=== PATIENT | female | born 1955 | race Caucasian/White ===

== ENCOUNTER 2022-05-23 10:32 | Outpatient (REF) | payer OTHER, SELFPAY ==
--- NOTE | ~2022-05-23 | US_ITS ---
EXAMINATION: US EXTRACRANIAL CAROTID DUPLEX, BILATERAL CLINICAL INFORMATION: Carotid atherosclerosis. COMPARISON: None TECHNIQUE: Real-time ultrasound and Doppler techniques (integrating B-mode 2-D vascular images, Doppler spectral analysis and color-flow Doppler imaging) were utilized to interrogate the extracranial carotid arteries, the vertebral arteries and proximal subclavian arteries bilaterally. The degree of stenosis is determined by criteria similar to NASCET. FINDINGS: Right Side: 1. There is minimal atherosclerotic plaque seen in the bifurcation/proximal ICA region. 2. The common carotid artery PSV proximally is 98.5 cm/s and distally 87.9 cm/s. 3. The proximal internal carotid artery velocities are 96.2 cm/s systolic and 27.6 cm/s diastolic. 4. The proximal external carotid artery PSV is 82.6 cm/s. 5. The vertebral artery shows antegrade flow. 6. The subclavian artery waveforms are normal. Left Side: 1. There is minimal atherosclerotic plaque seen in the bifurcation/proximal ICA region. 2. The common carotid artery PSV proximally is 114 cm/s and distally 92.6 cm/s. 3. The proximal internal carotid artery velocities are 148 cm/s systolic and 55 cm/s diastolic. 4. The proximal external carotid artery PSV is 138 cm/s. 5. The vertebral artery shows antegrade flow. 6. The subclavian artery waveforms are normal. US/US carotid duplex BI IMPRESSION: 1. RIGHT: Minimal, non-hemodynamically significant stenosis of the proximal right internal carotid artery corresponding to a 0-49% stenosis by velocity criteria. 2. LEFT: Moderate, hemodynamically significant stenosis of the proximal left internal carotid artery corresponding to a 50-79% stenosis by velocity criteria.
== END 2022-05-23 10:33 | disposition home or self-care (01) ==
LOC: HO.US 10:32
PROVIDERS: PCP Internal Medicine; Visit Provider Internal Medicine
DX: I65.29 Occlusion and stenosis of unspecified carotid artery (principal)
CPT/HCPCS: 93880

== ENCOUNTER 2024-02-26 11:56 | Outpatient (AMB) | payer OTHER, SELFPAY ==
--- NOTE | 2024-02-26 12:09 | A.OFFPC_ITS ---
Vital Signs 3 02/26/24 12:14 Height 5 ft 4 in Weight 111 lb BMI 19.1 BP 108/58 L Blood Pressure Location Lt brachial Position Sitting Respiration 16 Pulse 71 Pulse Source Pulse Oximeter Temp 98.9 F Temp Source Oral Pulse Oximetry (%) 96 Oxygen Delivery Method Room Air Intake Visit Reasons: tongue pain Intake Note: Tongue pain Post Graduate Intern Required: No Accompanied by: Spouse Allergies No Known Allergies Allergy (Verified 02/26/24 12:55) Medication List - Last Reconciled 02/26/24 by Latesha Park, [employer] MANAGER- doxycycline hyclate 100 mg PO BID ibuprofen 200 mg PO Q6H PRN metoprolol succinate ER 25 mg PO DAILY valacyclovir 500 mg PO BID HPI HPI Comments 2 History of Present Illness0 Details Here today w/ a sores on tongue reports prone to canker sores sx started Friday, worse on Friday Did call her PCP and was given Doxy and Valacylovir w/o relief Reports this happened about 10 years ago and this resolved w/ use of Steroid dose pack Difficult to eat d/t pain. Headache. Denies trauma to the tongue. Former smoker. Using NSAID w/o relief. Denies fever, chills. PFSH Social History Patient Tobacco Use Status: Former Tobacco user Tobacco use type: Cigarette Cigarette Packs Per Day: 1 Years Smoked: 25 e-Cigarette/Vaping Use: Never Used Review of Systems Const All systems reviewed & are unremarkable except as noted in HPI and below Physical exam (Primary Care) Vital Signs: Last Vital Signs Temp 98.9 F 02/26/24 12:14 Pulse 71 02/26/24 12:14 Resp 16 02/26/24 12:14 BP 108/58 L 02/26/24 12:14 Pulse Ox 96 02/26/24 12:14 Oxygen Delivery Method Room Air 02/26/24 12:14 BMI result Body Mass Index 19.1 Tobacco/Smoking Status: Tobacco use Status Patient Tobacco Use Status Former Tobacco user 02/26/24 12:21 Tobacco use type Cigarette 02/26/24 12:21 e-Cigarette/Vaping Use Never Used 02/26/24 12:21 Const Other: awake alert speaking in full sentences managing secretions pharynx clear uvula midline HENMT Mouth/tongue images: 2 1. large ulceration irregular border noted to left side of tongue 2. apthous ulcer 3. apthous ulcer Assessment and Plan Assessment & Plan (1) Recurrent aphthous stomatitis: Comment: advised to complete doxy and valacyclovir as RXd by PCP Start Medrol dose pack, as she responded well to this previously no OTC nsaids while taking the medrol Tramadol for pain along w/ lidocaine viscous, edu on use if lidocaine viscous fu with PCP Friday if no improvement consider referral for bx. Code(s): K12.0 - Recurrent oral aphthae Plan This note is constructed using voice recognition software. While every effort has been made to ensure accuracy in school director, still errors may have been included Sometimes, these errors may affect the content or meaning of the given sentence . Total time spent caring for the patient today was 30 minutes. This includes time spent before the visit reviewing the chart, time spent during the visit, and time spent after the visit on documentation Medications: New 2 methylprednisolone (Medrol ([place])) PO PER PKG DIR 21 ea 0RF lidocaine HCl 2% (Lidocaine Viscous) 15 mL mucous membrane QID PRN 300 mL 0RF pain tramadol 25 mg PO Q6H PRN 12 tabs 0RF pain Coding Level of Care Code Est Pt Level 4 (15105) Diagnoses Recurrent aphthous stomatitis K12.0
[2024-02-26 12:14] VITALS: BP 108/58; PULSE 71; RESP 16; TEMP 37.2; O2SAT 96; BMI 19.1
== END 2024-02-26 13:14 | disposition home or self-care (01) ==
PROVIDERS: PCP Internal Medicine; Visit Provider Nurse Practitioner Family
DX: K12.0 Recurrent oral aphthae (principal)
CPT/HCPCS: 99214

== ENCOUNTER 2024-05-21 14:16 | Outpatient (REF) | payer OTHER, SELFPAY ==
[2024-05-21 16:45] LABS: MANUAL DIFF FLAG NO
[2024-05-21 16:49] LABS: Basophils Absolute Auto 0.1 X10*3/uL (0.0-0.2); Basophils Percent Auto 0.5 % (0-2); Eosinophils Absolute Auto 0.1 X10*3/uL (0.0-0.4); Eosinophils Percent Auto 0.7 % (0-4); Hematocrit 36.6 % (37.0-47.0); Hemoglobin 12.1 g/dl (12.0-16.0); Imm Gran Abs Auto 0.03 X10*3/uL (0.00-0.03); Imm Gran Pct Auto 0.3 % (0.0-0.4); Lymphocytes Absolute Auto 1.7 X10*3/uL (1.2-4.9); Lymphocytes Percent Auto 17.1 % (20-40); Mean Corpuscular HGB Conc 33.1 g/dl (31.0-35.0); Mean Corpuscular Hemoglobin 30.1 pg (27.0-33.0); Mean Platelet Volume 10.3 fL (9.4-12.3); Monocytes Absolute Auto 0.9 X10*3/uL (0.1-1.2); Monocytes Percent Auto 9.1 % (2-11); Neutrophils Absolute Auto 7.1 x10*3/uL (2.0-8.3); Neutrophils Percent Auto 72.3 % (45-73); Platelet Count 486 X10*3/uL (160-400); Red Blood Count 4.02 X10*6/uL (4.20-5.50); Red Cell Distribution Width 14.3 % (11.0-16.0); White Blood Count 9.8 X10*3/uL (4.8-10.8)
[2024-05-21 17:36] LABS: Alanine Aminotransferase 33 U/L (0-31); Albumin Level 3.9 g/dL (3.5-5.0); Alkaline Phosphatase 110 U/L (39-117); Anion Gap 12 (12-20); Aspartate Amino Transferase 30 U/L (5-31); Bilirubin Total 0.2 mg/dL (0.0-1.0); Blood Urea Nitrogen 12 mg/dL (9-16); Calcium 9.1 mg/dL (8.4-10.2); Carbon Dioxide 27 mmol/L (22-29); Chloride 104 mmol/L (96-108); Estimated Glomerular Filt Rate > 60; Glucose Random 81 mg/dL (60-115); Potassium 4.3 mmol/L (3.3-5.1); Sodium 139 mmol/L (135-145); Total Protein 7.7 g/dL (6.5-8.0)
[2024-05-21 17:54] LABS: Vitamin D 25-OH Total 61.3 ng/mL (>30)
[2024-05-21 17:59] LABS: Erythrocyte Sedimentation Rate 72 MM/HR (0-20)
[2024-05-21 18:00] LABS: Folate 14.4 ng/mL (> or = 4.0); Vitamin B12 1578 pg/mL (200-900)
[2024-05-25 13:03] LABS: Lyme Blot >10.00 index
[2024-05-25 13:20] LABS: Lyme Abs Screen POSITIVE
[2024-05-26 17:22] LABS: 18 KD (IgG) Band NON-REACTIVE; 23 KD (IgG) Band NON-REACTIVE; 23 KD (IgM) Band REACTIVE; 28 KD (IgG) Band NON-REACTIVE; 30 KD (IgG) Band NON-REACTIVE; 39 KD (IgM) Band REACTIVE; 39KD (IgG) Band REACTIVE; 41 KD (IgM) Band REACTIVE; 41KD (IgG) Band REACTIVE; 45 KD (IgG) Band NON-REACTIVE; 58 KD (IgG) Band NON-REACTIVE; 66 KD (IgG) Band NON-REACTIVE; 93 KD (IgG) Band NON-REACTIVE; Lyme IgG Blot Interp NEGATIVE (NEGATIVE); Lyme IgM Blot Interp POSITIVE (NEGATIVE)
[2024-06-01 15:18] LABS: A. Phagocytophilum Ab IgG <1:64 (<1:64); A. Phagocytophilum Ab IgM <1:20 (<1:20); E. Chaffeensis Ab IgG <1:64 (<1:64); E. Chaffeensis Ab IgM 1:40 (<1:20); Interpretation EQUIVOCAL
== END 2024-05-21 14:17 | disposition home or self-care (01) ==
LOC: HO.MANLDS 14:16
PROVIDERS: Visit Provider Physician Assistant
DX: T14.8XXD Other injury of unspecified body region, subsequent encounter (principal); W57.XXXD Bitten or stung by nonvenomous insect and other nonvenomous arthropods, subsequent encounter
CPT/HCPCS: 36415; 80053; 82306; 82607; 82746; 85025; 85652; 86617; 86618; 86666